=== PATIENT | female | born 2005 | race Caucasian/White ===

== ENCOUNTER 2025-03-14 17:01 | Emergency (ER) | payer BC, SELFPAY ==
[2025-03-14 17:03] VITALS: BP 118/83
[2025-03-14 17:21] LABS: Hematocrit 38.1 % (37.0-47.0); Hemoglobin 13.9 g/dL (12.0-16.0); Mean Corp Hgb Conc. 36.5 g/dL (33.0-37.0); Mean Corpuscular Volume 80.9 fL (81.0-99.0); Nucleated Red Blood Cells % 0 %; Platelet Count 173 10^3/uL (130-400); Red Cell Dist. Width 11.5 % (11.5-14.5)
[2025-03-14 17:35] LABS: HCG, Serum Qualitative Screen Negative
[2025-03-14 17:43] LABS: ALT (SGPT) 23 U/L (0-35); AST (SGOT) 20 U/L (14-36); Albumin 4.7 g/dl (3.5-5.0); Alkaline Phosphatase 34 U/L (38-126); Blood Urea Nitrogen 7 mg/dl (7-17); Calcium 10.1 mg/dl (8.4-10.2); Carbon Dioxide 21 mmol/L (22-30); Chloride 109 mmol/L (98-107); Glucose 101 mg/dl (70-99); Potassium 4.3 mmol/L (3.5-5.1); Sodium 138 mmol/L (135-145); Total Protein 7.5 g/dl (6.3-8.2); eGFR > 60.00
--- NOTE | 2025-03-14 18:24 | ED.GENMED ---
History of Present Illness
General
Chief Complaint: Visual Problem
Source: patient
Exam Limitations: none
Time Seen by Provider: 03/14/25 18:17
Nursing documentation reviewed up to this point in time: agreed with
History of Present Illness
History of Present Illness:
Patient to ED with complaint of head pain and 'splotchy' vision. Symptoms started yesterday. Taking excedrin migraine with some improvement with head pain but vision symptoms persist. Denies fever/chills. No history of trauma. Brought self to ED
for eval.
Past History
Past History
ED Past Medical History: None
ED Past Surgical History: None
Review of Systems
Review of Systems
Allergies reviewed?: Yes
All Other Systems: ROS reviewed and negative except as documented in HPI and ROS
Constitutional: Reports no symptoms
EENT: Reports other (Reports 'splotchy vision'. Describes as not as clear as usual)
Respiratory: Reports no symptoms
Cardiac: Reports no symptoms
ABD/GI: Reports no symptoms
: Reports no symptoms
Musculoskeletal: Reports no symptoms
Skin: Reports no symptoms
Neurological: Reports headache
Psychiatric: Reports no symptoms
Phy Exam
General Physical Exam
General Presentation: well appearing and no apparent distress
General age: appears stated age
General Skin: warm and dry
General Habitus: normal
General Mental: alert
ENT Exam
ENT Exam: EOMI, TM's normal, neck supple, normocephalic and swallowing well
Eye Exam
Eye Exam: PERRL, EOMI, conjunctiva normal and globe normal
Cardiovascular Exam
Cardiovascular Exam: regular rate/rhythm and no edema
Neurological Exam
Neurological Exam: alert, oriented x3, CN II-XII intact, no motor deficits, no sensory deficits, speech normal and normal gait
[place] Coma Scale
Eye Opening: Spontaneous
Verbal Response: Oriented
Motor Response: Obeys Commands
GCS Total Score: 15
Mental
Mental Status: oriented to person, oriented to place, oriented to time and usual mental status
Cranial
Cranial Nerves: normal
EOM (CN3/4/6): intact
Motor
Seizure Activity: none
Gait: normal
Tremors: none
Other Movement Disorders: none
Right upper extremity: 4
Right lower extremity: 4
Left upper extremity: 4
Left lower extremity: 4
Bilateral upper extremities: 4
Bilateral lower extremities: 4
Sensory
Sensory Exam: intact
Cerebellar
Cerebellar Function: normal finger to nose and normal Romberg test
Musculoskeletal Exam
Musculoskeletal Exam: full ROM and neuro vasc intact
Skin Exam
Skin Exam: normal color, warm/dry and no rash
Psychiatric Exam
Psychiatric Exam: normal mood/affect
Course
Orders/Labs/Results
Orders:
Orders
03/14/25 17:05
Test Result ONCE
03/14/25 17:13
Complete Blood Count/With Diff Urgent
Comprehensive Metabolic Panel Urgent
HCG, Serum Qualitative Screen Urgent
03/14/25 18:[address] [CT Sinuses W/o Iv Contrast] Urgent
Comment:
Reason For Exam: vision changes, head pain
03/14/25 18:23
CT Head W/o Iv Contrast Urgent
Comment:
Reason For Exam: pain, vision changes
03/14/25 19:50
Amoxicillin 875 mg/Clav 125 mg [Augmentin 875 mg/125 mg] 1 tablet PO NOW STA
Abnormal Lab Results
03/14/25
17:13
WBC 3.2 L 10^3/uL
(4.8-10.8)
MCV 80.9 L fL
(81.0-99.0)
Absolute Neuts (auto) 1.3 L 10^3/uL
(1.4-6.5)
Neutrophils % 39.1 L %
(42.2-75.2)
Monocytes % 11.9 H %
(1.7-9.3)
Chloride 109 H mmol/L
(98-107)
Carbon Dioxide 21 L mmol/L
(22-30)
Glucose 101 H mg/dl
(70-99)
Alkaline Phosphatase 34 L U/L
(38-126)
03/14/25 17:13
03/14/25 17:13
Vital Signs
Initial and Last Documented VS:
Initial Vital Signs
Temp Pulse Resp BP Pulse Ox
98.3 F 81 18 118/83 98
03/14/25 17:03 03/14/25 17:03 03/14/25 17:03 03/14/25 17:03 03/14/25 17:03
Last Documented Vital Signs
Temp Pulse Resp BP Pulse Ox
98.3 F 99 18 131/94 98
03/14/25 17:03 03/14/25 18:40 03/14/25 17:03 03/14/25 18:40 03/14/25 18:40
*Radiology
Radiology exam reviewed: radiology read reviewed
*Pulse Oximetry
SaO2: 98
Oxygen Mode of Delivery: Room air
Patient hypoxic: no
*Critical Care Note
Total Time (30-74mins, 75-104mins- exclusive of procedures): Not Applicable
Update Note
Update Note:
PPatient to ED with report of alteration in vision. Reports feeling like she was staring at the sun and then looked away. Alteration is intermittent. VSS, she remains afebrile. Neurologically baseline, intact. Head and sinus CT report reviewed
with patient and mother. Ethomoid and maxillary sinus wall thickening. Will place on augmentin for sinusitis, and she will follow up with PCP next week. Given instructins on s/s to return to ED and she is agreeable to plan.
ED Attending Note
-
Portions of this chart may have been created with voice recognition software.� Occasional wrong word or��sound alike� substitutions may have occurred due to the inherent limitations of voice recognition software.
Discharge Plan
Departure
Patient Disposition: Home (Routine Discharge)
Date of Disposition: 03/14/25
Time of Disposition: 19:51
Patient with high blood pressure during this ER visit?: No
Condition: Good
Covid-19: Not Applicable
Discharge Problem:
Sinusitis
Instructions: Sinusitis in adults, Headache, Adult (DC)
Prescriptions:
New
amoxicillin-pot clavulanate 875-125 mg tablet
1 tab PO BID Qty: 20 0RF
Referrals:
NONE,* [Family Provider, Internal Medicine]
Activity Restrictions/Additional Instructions:
Follow up with your family doctor.
Interventions
Interventions:
*Risk Screen - Suicide Last Done: 03/14/25 17:03
*General Assessment Last Done: 03/14/25 18:41
*Neglect/Abuse Screening Last Done: 03/14/25 17:03
*ED- Fall Risk Assessment Last Done: 03/14/25 18:41
*ED COVID-19 Vaccine History Last Done: 03/14/25 18:41
*Nursing Disposition Last Done: 03/14/25 20:03
ED- Neurological Assessment Last Done: 03/14/25 18:42
ED-EENT Assessment Last Done: 03/14/25 20:02
ED Swallowing Screen Last Done: 03/14/25 18:45
Discharge Date and Time
Discharge Date/Time: 03/14/25 20:03
Print Language: CROATIAN
[2025-03-14 18:40] VITALS: BP 131/94
[2025-03-14 18:41] VITALS: BMI 21.4
[2025-03-14] MEDS: AUGMENTIN 875 MG/125 MG 1 TABLET PO (19:58)
== END 2025-03-14 20:03 | disposition home or self-care (01) ==
LOC: EMR 17:01
PROVIDERS: Student in an Organized Health Care Education/Training Program; EMERGENCY PHYSICIAN Emergency Medicine
DX: J32.9 Chronic sinusitis, unspecified (principal)
CPT/HCPCS: 99284; 70450; 70486; 80053; 84703; 85025